=== PATIENT | female | born 1970 | race American Indian/Alaskan Native ===

== ENCOUNTER 2016-12-13 12:20 | Emergency (ER) | payer SELFPAY ==
[2016-12-13 13:46] LABS: Hematocrit 27.9 % (30.3-42.9); Hemoglobin 7.8 gm/dl (10.1-14.3); Mean Corpuscular HGB Conc 28 % (30-34); Mean Corpuscular Hemoglobin 15 pg (28-32); Mean Corpuscular Volume 54 fl (79-97); Platelet Count 331 K/mm3 (140-440); Red Blood Count 5.14 M/mm3 (3.65-5.03); Red Cell Distribution Width 23.9 % (13.2-15.2); White Blood Count 4.9 K/mm3 (4.5-11.0)
[2016-12-13 13:47] LABS: Mean Platelet Volume 9.1 fl (6-12)
[2016-12-13 13:54] LABS: Anion Gap 17 mmol/L; Blood Urea Nitrogen 5 mg/dL (7-17); Carbon Dioxide 24 mmol/L (22-30); Chloride 99.7 mmol/L (98-107); Glucose 108 mg/dL (65-100); Potassium 3.9 mmol/L (3.6-5.0); Sodium 137 mmol/L (137-145)
[2016-12-13 14:46] LABS: Anisocytosis 2+; Basophils % (Manual) 0 % (0.0-1.8); Blastocytes % (Manual) 0 %; Hypochromasia 3+; Microcytosis 2+
[2016-12-13 14:47] LABS: Polychromasia Few; Target Cells 1+
[2016-12-13 14:48] LABS: Diff Status Complete; Elliptocytes Few; Tear Drop Cells Rare
[2016-12-13] MEDS ORDERED: NACL 0.9% 1000 ML 1,000 ML IV ONE (18:38)
--- NOTE | 2016-12-13 18:41 | Emergency Department Report ---
ED Shortness of Breath HPI - General Chief Complaint: Dyspnea/Respdistress Stated Complaint: SOB,TIREDNESS Time Seen by Provider: 12/13/16 16:33 Source: patient Mode of arrival: Ambulatory Limitations: No Limitations - History of Present Illness Initial Comments: 46-year-old female with a past medical history iron deficiency anemia presents to the hospital complaints at this evening exertion, tired feeling, and fatigue 1 week. Symptoms worse with exertion. Patient states that her last menses was earlier this month and last approximately 5 days although she did skip the last 2 months of her menstrual cycle. Denies heavy vaginal bleeding. Patient also denies chest pain, calf tenderness, recent travel, history of PE/DVT, or control/estrogen use. Patient has a known history of iron deficiency anemia and just restarted taking iron tablets 2 days ago. Denies history of previous blood transfusion. - Related Data Previous Rx's Medication Instructions Recorded Last Taken Type Ranitidine (Nf) [Zantac (Nf)] 150 mg PO Q12H #30 tab 12/23/13 Unknown Rx Docusate Sodium [Colace] 100 mg PO BID PRN #30 capsule 12/13/16 Unknown Rx Ferrous Sulfate [Feosol 325 MG tab] 325 mg PO BID #60 tablet 12/13/16 Unknown Rx Allergies Allergy/AdvReac Type Severity Reaction Status Date / Time No Known Allergies Allergy Unverified 12/23/13 10:40 ED Review of Systems ROS: Stated complaint: SOB,TIREDNESS Other details as noted in HPI Comment: All other systems reviewed and negative Other: Constitutional: No fevers chills Eyes: No eye pain visual changes ENT: No ear pain or throat pain Neck: Denies pain Respiratory: Denies cough wheezing Cardiovascular: Denies chest pain GI: Denies abdominal pain, nausea, vomiting : Denies dysuria Musculoskeletal: Denies back pain Skin: Denies rash, lesions, erythema Neurologic: Denies headache, numbness, weakness Psychiatric: Denies suicidal ideation, hallucinations ED Past Medical Hx - Past Medical History Additional medical history: anemia - Surgical History Past Surgical History?: No - Social History Smoking Status: Never Smoker Substance Use Type: None - Medications Home Medications: Home Medications Medication Instructions Recorded Confirmed Last Taken Type Ranitidine (Nf) [Zantac (Nf)] 150 mg PO Q12H #30 tab 12/23/13 Unknown Rx Docusate Sodium [Colace] 100 mg PO BID PRN #30 capsule 12/13/16 Unknown Rx Ferrous Sulfate [Feosol 325 MG tab] 325 mg PO BID #60 tablet 12/13/16 Unknown Rx ED Physical Exam - General Limitations: No Limitations - Other Other exam information: General: No limitations, patient is alert in no acute distress Head exam: Atraumatic, normocephalic Eyes exam: Normal appearance ENT: Moist mucous membrane, normal oropharynx Neck exam: Normal inspection, full range of motion, no meningismus nontender Respiratory exam: Clear to auscultation bilateral, no wheezes, rales, crackles Cardiovascular: Normal rate and rhythm, normal heart sounds Abdomen: Soft, nondistended, and nontender, with normal bowel sounds, no rebound, or guarding Extremity: Full range of motion normal inspection no deformity, no calf tenderness or edema Back: Normal Inspection, full range of motion, no tenderness Neurologic: Alert, oriented x3, cranial nerves intact, no motor or sensory deficit Psychiatric: normal affect, normal mood Skin: Warm, dry, intact ED Course Vital Signs 12/13/16 12/13/16 12/13/16 12:42 15:55 16:00 Temperature 98.5 F Pulse Rate 112 H 109 H 103 H Respiratory 15 15 Rate Blood Pressure 146/95 146/84 Blood Pressure [Right] O2 Sat by Pulse 100 100 100 Oximetry 12/13/16 12/13/16 12/13/16 16:15 16:30 16:50 Temperature Pulse Rate 101 H 102 H Respiratory 14 22 Rate Blood Pressure 139/87 139/87 139/87 Blood Pressure [Right] O2 Sat by Pulse 100 100 82 L Oximetry 12/13/16 12/13/16 12/13/16 17:01 17:37 17:54 Temperature Pulse Rate Respiratory 12 Rate Blood Pressure 139/87 139/87 139/87 Blood Pressure [Right] O2 Sat by Pulse 72 L Oximetry 12/13/16 12/13/16 12/13/16 18:00 18:16 18:30 Temperature Pulse Rate Respiratory 14 17 14 Rate Blood Pressure 61/33 61/33 127/83 Blood Pressure [Right] O2 Sat by Pulse 100 100 Oximetry 12/13/16 12/13/16 12/13/16 18:38 18:39 19:50 Temperature 98.2 F Pulse Rate 100 H 97 H Respiratory 16 16 Rate Blood Pressure Blood Pressure 127/86 [Right] O2 Sat by Pulse 100 100 Oximetry ED Medical Decision Making - Lab Data Result diagrams: 12/13/16 12:47 12/13/16 12:48 Lab Results 12/13/16 12/13/16 12/13/16 Range/Units 12:47 12:48 13:30 WBC 4.9 (4.5-11.0) K/mm3 RBC 5.14 H (3.65-5.03) M/mm3 Hgb 7.8 L (10.1-14.3) gm/dl Hct 27.9 L (30.3-42.9) % MCV 54 L (79-97) fl MCH 15 L (28-32) pg MCHC 28 L (30-34) % RDW 23.9 H (13.2-15.2) % Plt Count 331 (140-440) K/mm3 Lymph % (Auto) Computed Tomography Scanner Operator Wilkinson % (Auto) Computed Tomography Scanner Operator Eos % (Auto) Computed Tomography Scanner Operator Baso % (Auto) Computed Tomography Scanner Operator Lymph # Computed Tomography Scanner Operator Wilkinson # Computed Tomography Scanner Operator Eos # Computed Tomography Scanner Operator Baso # Computed Tomography Scanner Operator Add Manual Diff Complete Total Counted 100 Seg Neutrophils % Computed Tomography Scanner Operator Seg Neuts % (Manual) 66.0 (40.0-70.0) % Band Neutrophils % 0 % Lymphocytes % (Manual) 24.0 (13.4-35.0) % Reactive Lymphs % (Man) 0 % Monocytes % (Manual) 9.0 H (0.0-7.3) % Eosinophils % (Manual) 1.0 (0.0-4.3) % Basophils % (Manual) 0 (0.0-1.8) % Metamyelocytes % 0 % Myelocytes % 0 % Promyelocytes % 0 % Blast Cells % 0 % Nucleated RBC % Not Reportable Seg Neutrophils # Computed Tomography Scanner Operator Seg Neutrophils # Man 3.2 (1.8-7.7) K/mm3 Band Neutrophils # 0.0 K/mm3 Lymphocytes # (Manual) 1.2 (1.2-5.4) K/mm3 Abs React Lymphs (Man) 0.0 K/mm3 Monocytes # (Manual) 0.4 (0.0-0.8) K/mm3 Eosinophils # (Manual) 0.0 (0.0-0.4) K/mm3 Basophils # (Manual) 0.0 (0.0-0.1) K/mm3 Metamyelocytes # 0.0 K/mm3 Myelocytes # 0.0 K/mm3 Promyelocytes # 0.0 K/mm3 Blast Cells # 0.0 K/mm3 WBC Morphology Not Reportable Hypersegmented Neuts Not Reportable Hyposegmented Neuts Not Reportable Hypogranular Neuts Not Reportable Smudge Cells Not Reportable Toxic Granulation Not Reportable Toxic Vacuolation Not Reportable Dohle Bodies Not Reportable Pelger-Huet Anomaly Not Reportable Tanna Rods Not Reportable Platelet Estimate Appears normal Clumped Platelets Not Reportable Plt Clumps, EDTA Not Reportable Large Platelets Not Reportable Giant Platelets Not Reportable Platelet Satelliting Not Reportable Plt Morphology Comment Not Reportable RBC Morphology Not Reportable Dimorphic RBCs Not Reportable Polychromasia Few Hypochromasia 3+ Poikilocytosis Not Reportable Anisocytosis 2+ Microcytosis 2+ Macrocytosis Not Reportable Spherocytes Not Reportable Pappenheimer Bodies Not Reportable Sickle Cells Not Reportable Target Cells 1+ Tear Drop Cells Rare Ovalocytes Not Reportable Helmet Cells Not Reportable Bernabe-Marshfield Bodies Not Reportable [place] Rings Not Reportable Nubia Cells Not Reportable Bite Cells Not Reportable Crenated Cell Not Reportable Elliptocytes Few Acanthocytes (Spur) Not Reportable Rouleaux Not Reportable Hemoglobin C Crystals Not Reportable Schistocytes Not Reportable Malaria parasites Not Reportable Matteo Bodies Not Reportable Hem Pathologist Commnt No D-Dimer (0-234) ng/mlDDU Sodium 137 (137-145) mmol/L Potassium 3.9 (3.6-5.0) mmol/L Chloride 99.7 (98-107) mmol/L Carbon Dioxide 24 (22-30) mmol/L Anion Gap 17 mmol/L BUN 5 L (7-17) mg/dL Creatinine 0.5 L (0.7-1.2) mg/dL Estimated GFR > 60 ml/min BUN/Creatinine Ratio 10.00 % Glucose 108 H (65-100) mg/dL Calcium 9.0 (8.4-10.2) mg/dL Iron (37-170) ug/dL TIBC (250-450) mcg/dL % Saturation % Transferrin (192-382) mg/dl HCG, Qual Negative (Negative) 12/13/16 12/13/16 Range/Units 16:34 17:06 WBC (4.5-11.0) K/mm3 RBC (3.65-5.03) M/mm3 Hgb (10.1-14.3) gm/dl Hct (30.3-42.9) % MCV (79-97) fl MCH (28-32) pg MCHC (30-34) % RDW (13.2-15.2) % Plt Count (140-440) K/mm3 Lymph % (Auto) Wilkinson % (Auto) Eos % (Auto) Baso % (Auto) Lymph # Wilkinson # Eos # Baso # Add Manual Diff Total Counted Seg Neutrophils % Seg Neuts % (Manual) (40.0-70.0) % Band Neutrophils % % Lymphocytes % (Manual) (13.4-35.0) % Reactive Lymphs % (Man) % Monocytes % (Manual) (0.0-7.3) % Eosinophils % (Manual) (0.0-4.3) % Basophils % (Manual) (0.0-1.8) % Metamyelocytes % % Myelocytes % % Promyelocytes % % Blast Cells % % Nucleated RBC % Seg Neutrophils # Seg Neutrophils # Man (1.8-7.7) K/mm3 Band Neutrophils # K/mm3 Lymphocytes # (Manual) (1.2-5.4) K/mm3 Abs React Lymphs (Man) K/mm3 Monocytes # (Manual) (0.0-0.8) K/mm3 Eosinophils # (Manual) (0.0-0.4) K/mm3 Basophils # (Manual) (0.0-0.1) K/mm3 Metamyelocytes # K/mm3 Myelocytes # K/mm3 Promyelocytes # K/mm3 Blast Cells # K/mm3 WBC Morphology Hypersegmented Neuts Hyposegmented Neuts Hypogranular Neuts Smudge Cells Toxic Granulation Toxic Vacuolation Dohle Bodies Pelger-Huet Anomaly Tanna Rods Platelet Estimate Clumped Platelets Plt Clumps, EDTA Large Platelets Giant Platelets Platelet Satelliting Plt Morphology Comment RBC Morphology Dimorphic RBCs Polychromasia Hypochromasia Poikilocytosis Anisocytosis Microcytosis Macrocytosis Spherocytes Pappenheimer Bodies Sickle Cells Target Cells Tear Drop Cells Ovalocytes Helmet Cells Bernabe-Marshfield Bodies [place] Rings Nubia Cells Bite Cells Crenated Cell Elliptocytes Acanthocytes (Spur) Rouleaux Hemoglobin C Crystals Schistocytes Malaria parasites Matteo Bodies Hem Pathologist Commnt D-Dimer 382.69 H (0-234) ng/mlDDU Sodium (137-145) mmol/L Potassium (3.6-5.0) mmol/L Chloride (98-107) mmol/L Carbon Dioxide (22-30) mmol/L Anion Gap mmol/L BUN (7-17) mg/dL Creatinine (0.7-1.2) mg/dL Estimated GFR ml/min BUN/Creatinine Ratio % Glucose (65-100) mg/dL Calcium (8.4-10.2) mg/dL Iron 25 L (37-170) ug/dL TIBC 414 (250-450) mcg/dL % Saturation 6.04 % Transferrin 355 (192-382) mg/dl HCG, Qual (Negative) - EKG Data -: EKG Interpreted by Me (sinus tach rate 101, no stemi/or t inversions, rate 101) - Radiology Data Radiology results: report reviewed, image reviewed cxr: naf (read by me) ct angio chest: Suboptimal contrast opacification of the pulmonary arterial tree and spray artifact limits sensitivity and for study. Depending on clinical assessment, further evaluation should be considered such as a nuclear medicine ventilation/study and/or bilateral lower extremity duplex assess for risk of PE. - Medical Decision Making Patient vital signs were erroneous and documented as 61/33. This is an outlire is not consistent with other reported vital signs. Patient has symptomatic anemia however, compared to previous it is not that different from baseline. Patient offered admission a blood transfusion which she has declined at this time. Patient instructed to continue iron tablets and follow up very closely. Unfortunately CT angiogram with suboptimal for PE. Patient is a low risk pre test probability with a chronically elevated d-dimer which is decreased from previous visit. Heart rate less than 100 after IV fluids. Patient given the option for VQ or outpatient bilateral Dopplers. She opted for the latter. Also explained I am unable to fully rule out cardiac disease at this time the patient still prefers to go home and take iron tablets and follow-up. Overall believe the risk is low for cardiac. Patient has unremarkable EKG and has a negative troponin. No chest pain reported. Her mother developed cardiac disease in her late 50s, patient does not smoke, have hypertension, diabetes, and does not report a history of hyperlipidemia. - Differential Diagnosis anemia, pe, mi, unstable angina, Critical Care Time: No Critical care attestation.: If time is entered above; I have spent that time in minutes in the direct care of this critically ill patient, excluding procedure time. ED Disposition Clinical Impression: Dyspnea, Iron deficiency anemia, Symptomatic anemia Disposition: TO HOME OR SELFCARE Is pt being admited?: No Does the pt Need Aspirin: No Condition: Stable Instructions: Iron Deficiency Anemia (ED), Dyspnea (ED) Additional Instructions: Admission for further monitoring including blood transfusion and possible cardiac evaluation has been recommended. You have declined at this time. Lab work is suggestive of iron deficiency anemia. Take iron tablets twice a day to see if this improves your anemia. Iron tablets may cause constipation and therefore take stool softeners if needed. Close follow-up will be needed. Given that to the CAT scan of the chest was suboptimal for PE you have elected to come back tomorrow for bilateral leg Dopplers as opposed to a VQ scan tonight. Please return if symptoms worsen prior to follow-up. Please return tomorrow as indicated for outpatient ultrasound of both legs to rule out blood clot. Prescriptions: Docusate Sodium [Colace] 100 mg PO BID PRN #30 capsule PRN Reason: Constipation Ferrous Sulfate [Feosol 325 MG tab] 325 mg PO BID #60 tablet Referrals: MELLO ESPINOSA DO [Staff Physician] - 3-5 Days (Nurse Receptionist) [facility] [Provider Group] - 3-5 Days (Primary care clinic) MEGHAN RAMOS MD [Staff Physician] - 3-5 Days (Primary care doctor) Time of Disposition: 20:31
--- NOTE | 2016-12-13 19:38 | Cat Scan Report ---
FINAL REPORT EXAM: CT ANGIO CHEST HISTORY: sob, mild ddimer elevation TECHNIQUE: High-resolution helical axial images were obtained of the chest during intravenous administration of iodinated contrast. Images are reconstructed in the sagittal and coronal planes. PRIORS: None. FINDINGS: Study is limited by suboptimal contrast opacification and spray artifact that results in numerous dark lines overlying mediastinum.. There is no evidence of pulmonary embolism, the pulmonary arteries opacify normally. The heart and thoracic aorta appear normal. There is a small calcified granuloma in the left lower lobe. Otherwise, the lungs are clear. Images through the upper abdomen are unremarkable. The bones are unremarkable. IMPRESSION: Suboptimal contrast opacification of the pulmonary arterial tree and spray artifact limits sensitivity in this study. Depending on the clinical assessment, further evaluation should be considered such as a nuclear medicine ventilation/perfusion study and/or bilateral lower extremity duplex to better assess risk of PE. No other acute findings.
[2016-12-13 21:15] VITALS: BP 123/79
--- NOTE | 2016-12-14 09:32 | XRay Report ---
AP CHEST: HISTORY: Difficulty in breathing AP view of the chest demonstrates a normal mediastinal and cardiac contour with clear lungs and normal bony and soft tissue structures. IMPRESSION: Unremarkable AP chest.
== END 2016-12-13 21:15 | disposition home or self-care (01) ==
LOC: ED 12:20
DX: R06.00 Dyspnea, unspecified (principal); D50.9 Iron deficiency anemia, unspecified
CPT/HCPCS: 36415; 71010; 71275; 80048; 83550; 84484; 84703; 85007; 85025; 85379; 93005; 93010; 96360; 99284; J7030; Q9967